=== PATIENT | male | born 1980 | race Two or more races ===

== ENCOUNTER → 2018-04-26 | Outpatient (CLI) | payer OTHER ==
[~2018-04-26] MED LIST: [UNRECOGNIZED DRUG - OTHER]
--- NOTE | 2018-04-26 10:40 | REP ---
Chest two views HISTORY: Fever Comparison: None The lungs are clear. The heart is normal in size. The pulmonary vasculature is normal in appearance. The bony structure is intact. IMPRESSION: No acute disease. Electronically Signed by Steve Jordan MD 04/26/2018 10:32 A
== END ==
LOC: M LRY 10:22
PROVIDERS: ATTEND Nurse Practitioner Family
DX: R50.9 Fever, unspecified (principal)
CPT/HCPCS: 71046; 87804; 87880; 93005; G0404; G0463

== ENCOUNTER → 2018-04-26 | Outpatient (REF) | payer OTHER | LOC: M SFHCLERA 09:55 | PROVIDERS: ATTEND Nurse Practitioner Family | DX: R50.9 Fever, unspecified (principal) ==

== ENCOUNTER 2018-04-27 09:30 | Emergency (ER) | payer OTHER ==
[~2018-04-27] VITALS: Ht 172.7 cm; Wt 97.6 kg
[2018-04-27 09:31] VITALS: BP 143/80
[2018-04-27] MEDS ORDERED: [UNRECOGNIZED DRUG - OTHER] (09:38)
== END 2018-04-27 10:44 | disposition home or self-care (01) ==
LOC: M ED 09:30
DX: B34.9 Viral infection, unspecified (principal); Z88.0 Allergy status to penicillin